=== PATIENT | female | born 1985 | race Asian ===

== ENCOUNTER 2018-01-13 02:04 | Emergency (ER) | payer BC ==
[2018-01-13] MEDS ORDERED: KETOROLAC TROMETHAMINE INJ/PF 30 MG/1 ML SDV IV ONE (02:29)
[2018-01-13] MEDS ORDERED: NORMAL SALINE 1000 ML 1,000 ML IV ONE (02:29)
--- NOTE | 2018-01-13 02:31 | ER Document Report ---
ED General - General Chief Complaint: Chest Pain Stated Complaint: CHEST PAIN Time Seen by Provider: 01/13/18 02:23 Notes: Patient is a 32-year-old female who comes emergency department for chief complaint of chest pain. She states pain is in the center of her chest, started several hours ago, is worse when she takes a deep breath but is persistent. She denies shortness of breath, nausea or vomiting, abdominal pain , flank pain, dizziness. [place]. She denies smoking, alcohol, or recreational drugs. No daily medications. Family at bedside. TRAVEL OUTSIDE OF THE [place] IN LAST 30 DAYS: No - Related Data Allergies/Adverse Reactions: No Known Allergies Allergy (Verified 01/13/18 03:38) Past Medical History - General Information source: Patient - Social History Smoking Status: Never Smoker Frequency of alcohol use: None Drug Abuse: None Lives with: Family Family History: Reviewed & Not Pertinent - Medical History Medical History: Negative Surgical Hx: Negative - Immunizations Immunizations up to date: Yes Hx Diphtheria, Pertussis, Tetanus Vaccination: Yes Review of Systems - Review of Systems Constitutional: No symptoms reported EENT: No symptoms reported Cardiovascular: No symptoms reported Respiratory: See HPI Gastrointestinal: No symptoms reported Genitourinary: No symptoms reported Female Genitourinary: No symptoms reported Musculoskeletal: See HPI Skin: No symptoms reported Hematologic/Lymphatic: No symptoms reported Neurological/Psychological: No symptoms reported Physical Exam - Vital signs Vitals: BP Pulse Ox 135/79 H 100 01/13/18 02:26 01/13/18 02:26 - Notes Notes: GENERAL: Alert, interacts well. No acute distress. HEAD: Normocephalic, atraumatic. EYES: Pupils equal, round, and reactive to light. Extraocular movements intact. ENT: Oral mucosa dry, tongue midline. NECK: Full range of motion. Supple. Trachea midline. LUNGS: Clear to auscultation bilaterally, no wheezes, rales, or rhonchi. No respiratory distress. Reproducible tenderness along the left sternal border, no swelling, erythema, crepitus, or other abnormality noted. Nontender chest otherwise. HEART: Regular rate and rhythm. No murmur ABDOMEN: Soft, non-tender. Non-distended. Bowel sounds present in all 4 quadrants. EXTREMITIES: Moves all 4 extremities spontaneously. No edema, normal radial and dorsalis pedis pulses bilaterally. No cyanosis. BACK: no cervical, thoracic, lumbar midline tenderness. No saddle anesthesia, normal distal neurovascular exam. NEUROLOGICAL: Alert and oriented x3. Normal speech. [cranial nerves II through XII grossly intact]. PSYCH: Normal affect, normal mood. SKIN: Warm, dry, normal turgor. No rashes or lesions noted. Course - Re-evaluation Re-evalutation: EKG sinus rhythm with no T-wave inversions or ST segment changes in consecutive leads. IA interval is unremarkable. QTC is unremarkable. No acute findings. Chest x-ray performed and is unremarkable. Blood chemistry performed and is unremarkable. Patient had dry mucous membranes and spent the day outside, she was given IV fluids, Toradol. She does have specific reproducible chest pain along the left sternal border. After medications patient reevaluated and she is smiling, states she feels much improved. Clear lungs, no signs of distress, unremarkable vital signs. PERC score is 0. Very low suspicion of any acute intrathoracic abnormality. Discussed suspected costochondritis, follow-up, return precautions in detail, patient and family state understanding and agreement. - Vital Signs Vital signs: Temp Pulse Resp BP Pulse Ox 98.3 F 69 15 117/73 99 01/13/18 02:30 01/13/18 02:30 01/13/18 03:02 01/13/18 03:02 01/13/18 03:02 - Laboratory Result Diagrams: 01/13/18 02:30 Laboratory results interpreted by me: 01/13/18 02:30 Chloride 108 H Discharge - Discharge Clinical Impression: Chest wall pain, Pain aggravated by coughing and deep breathing Condition: Stable Disposition: HOME, SELF-CARE Additional Instructions: Your chest x-ray, EKG, and laboratory evaluation did not show any concerning findings. Your examination indicates chest wall pain (costochondritis). This should resolve with time. You can apply heat to the chest wall, take Tylenol or ibuprofen, you have been medicated for symptoms tonight as well. Follow-up with primary care. Return for any concerning symptoms including difficulty breathing, severe pain, fever, passing out, or any other concerning symptoms. Costochondritis Your chest pain is coming from the rib cartilages in the chest wall. This is often caused by subtle straining of the ribs near the breastbone. The strain can occur from a mild injury, coughing or sneezing with a "cold," vigorous vomiting, or even from rib compression while sleeping. Often the pain doesn't begin until a couple of days after the strain. Persons with arthritis are especially prone to this type of pain, due to inflammation of the cartilage joints near the breast bone. But often, there is no clear reason why it happens. Rest from strenuous physical activity. This kind of chest pain is usually made worse by movement of the chest. Depending on the symptoms, we may prescribe medicine for pain and inflammation. Apply gentle warmth to the painful area for 15 minutes every hour or two. You should call contact the doctor immediately if things change. Further evaluation is needed if you develop a fever or cough, if the nature of the pain changes, or if you become short of breath. Referrals: DAMON BERUMEN MD [Primary Care Provider] - Follow up as needed
[2018-01-13 03:20] LABS: ANION GAP 13 (5-19); BLOOD UREA NITROGEN 15 mg/dL (7-20); CALCIUM 9.4 mg/dL (8.4-10.2); CARBON DIOXIDE 22 mmol/L (22-30); CHLORIDE 108 mmol/L (98-107); GLUCOSE 101 mg/dL (75-110); POTASSIUM 3.9 mmol/L (3.6-5.0); SODIUM 142.9 mmol/L (137-145)
--- NOTE | 2018-01-13 03:26 | RADIOLOGY REPORT (SQ) ---
EXAM DESCRIPTION: XR CHEST 2 VIEWS COMPLETED DATE/TME: 01/13/2018 02:30 CLINICAL HISTORY: 32 years Female, chest pain COMPARISON: None. FINDINGS: Adequate lung volume, clear parenchyma, normal cardiac silhouette, and grossly intact bony thorax. IMPRESSION: No acute cardiopulmonary findings.
[2018-01-13] MEDS ORDERED: DEXAMETHASONE SOD PHOS INJ 10 MG/1 ML VIAL IV ONE (03:58)
[2018-01-13 04:41] VITALS: BP 107/57
--- NOTE | 2018-01-13 17:30 | EKG REPORT ---
SEVERITY:- NORMAL ECG - SINUS RHYTHM : Confirmed by: Gina Brown MD 13-Jan-2018 17:29:32
== END 2018-01-13 04:42 | disposition home or self-care (01) ==
LOC: ER 02:04
DX: R07.89 Other chest pain (principal); R07.1 Chest pain on breathing; R05 Cough
CPT/HCPCS: 93005; 99285; 96361; 96374; 36415; 80048; 71046; 93010; J1885; J7030